=== PATIENT | male | born 1990 | race Caucasian/White ===

== ENCOUNTER → 2017-05-30 15:05 | Outpatient (CLI) | payer OTHER | END | disposition home or self-care (01) | LOC: D.MRI 15:05 | DX: G71.0 Muscular dystrophy (principal) ==

== ENCOUNTER → 2017-06-24 08:38 | Outpatient (CLI) | payer OTHER | END | disposition home or self-care (01) | LOC: D.MRI 08:38 | DX: M50.10 Cervical disc disorder with radiculopathy, unspecified cervical region (principal) ==

== ENCOUNTER → 2017-06-27 10:40 | Outpatient (CLI) | payer OTHER ==
[2017-06-27 12:07] LABS: GLUCOSE - CSF 56 MG/DL (40-75); PROTEIN - CSF 40 MG/DL (12-60)
[2017-06-27 12:09] LABS: APPEARANCE - CSF COLORLESS; RBC - CSF 0 cmm (0-0)
[2017-06-28 18:09] LABS: AFB SPECIMEN PROCESSING Not Indicated (())
[2017-06-29 14:22] LABS: FUNGUS STAIN Final report (())
[2017-06-29 15:22] LABS: IGGS - IGG INDEX CSF 0.5 (0.0-0.7)
[2017-07-25 11:12] LABS: FUNGUS MYCOLOGY CULTURE Final report (())
[2017-08-15 19:07] LABS: ACID FAST CULTURE Negative (()); ACID FAST SMEAR Negative (())
== END | disposition home or self-care (01) ==
LOC: D.RAD 10:40
PROVIDERS: Psychiatry & Neurology Neurology
DX: M50.10 Cervical disc disorder with radiculopathy, unspecified cervical region (principal)

== ENCOUNTER 2017-06-30 11:42 | Emergency (ER) | payer OTHER | END 2017-06-30 14:00 | disposition home or self-care (01) | LOC: D.ER 11:42 | DX: R51 Headache (principal); F17.200 Nicotine dependence, unspecified, uncomplicated ==